=== PATIENT | female | born 1945 | race Hispanic/Latino ===

== ENCOUNTER → 2021-03-24 | Outpatient (CLI) | payer SELFPAY ==
[~2021-03-24] MED LIST: ASPI-1005 PO; GABA-531 PO; HYDR25TA PO; LOSA25TA41 PO; SIMV-43 PO; VIT1CAPS47 PO
== END | disposition home or self-care (01) ==
LOC: OIH 08:32
PROVIDERS: ATTEND Internal Medicine Cardiovascular Disease
DX: Z13.6 Encounter for screening for cardiovascular disorders (principal)
CPT/HCPCS: 75571

== ENCOUNTER → 2021-05-10 | Outpatient (CLI) | payer OTHER ==
[~2021-05-10] VITALS: Ht 160 cm; Wt 68.9 kg
[~2021-05-10] MED LIST changes: +REGADENOSON 0.4 MG/5 ML PF SYG IVP SCH
== END | disposition home or self-care (01) ==
LOC: SHCH 07:53
PROVIDERS: ATTEND Internal Medicine Cardiovascular Disease
DX: I25.10 Atherosclerotic heart disease of native coronary artery without angina pectoris (principal)
CPT/HCPCS: 78452; 93017; 96374; A9500 ×2; J2785

== ENCOUNTER 2022-03-23 08:14 | Day surgery (SDC) | payer OTHER ==
[2022-03-21 13:41] VITALS: BP 135/67
[2022-03-21 15:20] LABS: BASOPHILS % (AUTO) 1.1 % (0.0-5.0); EOSINOPHILS % (AUTO) 5.3 % (0.0-8.0); HEMATOCRIT 32.7 % (36-48); LYMPHOCYTES % (AUTO) 24.6 % (21.0-51.0); MEAN CORPUSCULAR HEMOGLOBIN 31.1 pg (27.0-33.0); MEAN CORPUSCULAR HGB CONC 33.9 g/dL (32.0-36.0); MEAN CORPUSCULAR VOLUME 91.6 fL (79-99); MONOCYTES % (AUTO) 13.7 % (3.0-13.0); NEUTROPHILS % (AUTO) 55.1 % (40.0-77.0); PLATELET COUNT (AUTO) 234 K/uL (130-400); RED BLOOD CELL COUNT(AUTO) 3.57 MIL/uL (4.00-5.50); RED CELL DISTRIBUTION WIDTH 11.5 % (11.0-15.5); WHITE BLOOD COUNT (AUTO) 4.5 K/uL (4.8-10.8)
[2022-03-21 15:30] LABS: POTASSIUM 4.4 mmol/L (3.5-5.1)
[2022-03-21 15:33] LABS: INR 0.99 (0.85-1.15); PROTHROMBIN TIME 10.8 SEC (9.6-11.6)
[2022-03-21 15:34] LABS: PARTIAL THROMBOPLASTIN TIME 26.8 SEC (26.3-35.5)
[2022-03-21 15:41] LABS: B-TYPE NATRIURETIC PEPTIDE 143 pg/mL (0-100)
[2022-03-23] VITALS (10 sets, daily range): BP systolic 131–142; BP diastolic 47–58
[~2022-03-23] VITALS: Ht 162.6 cm; Wt 69.6 kg
[~2022-03-23 08:14] MED LIST changes: +CETI10TA57 PO; +DONE10TA43 PO; +HYDR12.54 PO; -HYDR25TA PO; -LOSA25TA41 PO; +METO-408 PO; +OLME40TA18 PO; +PSYL0.4C2 PO; +RANO500T6 PO; -REGADENOSON 0.4 MG/5 ML PF SYG IVP SCH; -SIMV-43 PO; +SIMV10TA97 PO; +prevagen PO; +vitamin d3 PO
[2022-03-23] MEDS ORDERED: HEPARIN 10,000 UNIT/10ML (1,000 UNIT/ML) VIAL ONE (10:08)
[2022-03-23] MEDS ORDERED: NITROGLYCERIN 50MG VIAL ONE ×2 (10:08→11:10)
[2022-03-23] MEDS ORDERED: IOHEXOL 350 MG/ML 100ML INFUS..BTL IV ONE (10:08)
[2022-03-23] MEDS ORDERED: IOHEXOL-350 50ML VIAL IV ONE (10:08)
[2022-03-23] MEDS ORDERED: LIDOCAINE HCL 400MG/20ML VIAL ONE ×2 (10:09→11:11)
[2022-03-23] MEDS ORDERED: FENTANYL CITRATE PF 50 MCG/1 ML 2ML VIAL ONE ×2 (10:09→11:10)
[2022-03-23] MEDS ORDERED: MIDAZOLAM HCL 1 MG/ML 2ML VIAL ONE ×2 (10:09→11:10)
[2022-03-23] MEDS ORDERED: IOHEXOL-350 75 ML VIAL IV ONE (11:10)
[2022-03-23] MEDS ORDERED: 0.9%NACL 1000ML 1,000 ML IV ONE (13:24)
== END 2022-03-23 15:30 | disposition home or self-care (01) ==
LOC: DAH 08:14
PROVIDERS: ATTEND Internal Medicine Cardiovascular Disease
DX: I25.811 Atherosclerosis of native coronary artery of transplanted heart without angina pectoris (principal); I10 Essential (primary) hypertension; I44.7 Left bundle-branch block, unspecified; I73.9 Peripheral vascular disease, unspecified; E78.5 Hyperlipidemia, unspecified; Z79.01 Long term (current) use of anticoagulants; Z79.82 Long term (current) use of aspirin; Z88.0 Allergy status to penicillin; Z88.8 Allergy status to other drugs, medicaments and biological substances; Z95.5 Presence of coronary angioplasty implant and graft; Z82.49 Family history of ischemic heart disease and other diseases of the circulatory system; Z90.49 Acquired absence of other specified parts of digestive tract; Z90.710 Acquired absence of both cervix and uterus; Z98.42 Cataract extraction status, left eye; Z98.41 Cataract extraction status, right eye
CPT/HCPCS: 36415; 71045; 80048; 83880; 85025; 85610; 85730; 93005; 93458; A4215; A4216; A4221; A4222; A4223 ×3; A4606; A4663; C1760; C1894; J1644 ×2; J2250; J3010; J3490 ×3; J7030; Q9967; 99156

== ENCOUNTER 2023-03-27 05:36 | Day surgery (SDC) | payer OTHER, MEDICARE ==
[2023-03-23 13:08] VITALS: BP 116/53
[2023-03-23 13:18] LABS: BASOPHILS % (AUTO) 1.3 % (0.0-5.0); EOSINOPHILS % (AUTO) 5.6 % (0.0-8.0); HEMATOCRIT 33.1 % (36-48); LYMPHOCYTES % (AUTO) 24.7 % (21.0-51.0); MEAN CORPUSCULAR HEMOGLOBIN 31.1 pg (27.0-33.0); MEAN CORPUSCULAR HGB CONC 33.5 g/dL (32.0-36.0); MEAN CORPUSCULAR VOLUME 92.7 fL (79-99); MONOCYTES % (AUTO) 10.5 % (3.0-13.0); NEUTROPHILS % (AUTO) 57.5 % (40.0-77.0); PLATELET COUNT (AUTO) 254 K/uL (130-400); RED BLOOD CELL COUNT(AUTO) 3.57 MIL/uL (4.00-5.50); RED CELL DISTRIBUTION WIDTH 11.7 % (11.0-15.5); WHITE BLOOD COUNT (AUTO) 4.7 K/uL (4.8-10.8)
[2023-03-23 13:32] LABS: POTASSIUM 4.1 mmol/L (3.5-5.1)
[2023-03-23 13:34] LABS: PROTHROMBIN TIME 10.9 SEC (9.6-11.6)
[2023-03-23 13:35] LABS: PARTIAL THROMBOPLASTIN TIME 28.5 SEC (26.3-35.5)
[2023-03-23 13:45] LABS: APPEARANCE,URINE CLEAR (CLEAR); BILIRUBIN,URINE NEGATIVE (NEGATIVE); COLOR,URINE LIGHT-YELLOW (YELLOW); GLUCOSE, URINE (UA) NEGATIVE (NEGATIVE); KETONES,URINE NEGATIVE (NEGATIVE); LEUKOCYTE ESTERASE ,URINE NEGATIVE Leu/uL (NEGATIVE); NITRATE,URINE NEGATIVE (NEGATIVE); OCCULT BLOOD,URINE NEGATIVE (NEGATIVE); PROTEIN,URINE NEGATIVE (NEGATIVE); UROBILINOGEN,URINE 0.2 mg/dL (0.2-1.0)
[2023-03-23 13:52] LABS: B-TYPE NATRIURETIC PEPTIDE 295 pg/mL (0-100)
[2023-03-27] VITALS (9 sets, daily range): BP systolic 92–115; BP diastolic 30–39
[~2023-03-27] VITALS: Ht 161.3 cm; Wt 62.5 kg
[~2023-03-27 05:36] MED LIST changes: +AEC81 PO; -ASPI-1005 PO; +BUPR1PAT10 TD; +CARV3.12 PO; +CHOL200013 PO; +FLUT16H NASAL; +FURO20TA4 PO; -GABA-531 PO; -HYDR12.54 PO; -METO-408 PO; -OLME40TA18 PO; +OMEP20CA12 PO; -RANO500T6 PO; +SACU1TAB PO; +SPIR25TA6 PO; +VITA1TAB22 PO; -prevagen PO; -vitamin d3 PO
[2023-03-27] MEDS ORDERED: 0.9%NACL 1000ML 1,000 ML IV ONE (06:11)
[2023-03-27] MEDS ORDERED: LIDOCAINE HCL 400MG/20ML VIAL ONE (07:04)
[2023-03-27] MEDS ORDERED: NITROGLYCERIN 50MG VIAL ONE (07:04)
[2023-03-27] MEDS ORDERED: IOHEXOL-350 75 ML VIAL IV ONE (07:04)
[2023-03-27] MEDS ORDERED: MIDAZOLAM HCL 1 MG/ML 2ML VIAL ONE (07:04)
[2023-03-27] MEDS ORDERED: IOHEXOL-350 50ML VIAL IV ONE (07:39)
== END 2023-03-27 12:00 | disposition home or self-care (01) ==
LOC: DAH 05:36
PROVIDERS: ATTEND Internal Medicine Cardiovascular Disease
DX: I25.10 Atherosclerotic heart disease of native coronary artery without angina pectoris (principal); I25.811 Atherosclerosis of native coronary artery of transplanted heart without angina pectoris; I11.0 Hypertensive heart disease with heart failure; I50.22 Chronic systolic (congestive) heart failure; I44.7 Left bundle-branch block, unspecified; I25.5 Ischemic cardiomyopathy; I87.2 Venous insufficiency (chronic) (peripheral); I73.9 Peripheral vascular disease, unspecified; E78.5 Hyperlipidemia, unspecified; Z88.0 Allergy status to penicillin; Z88.8 Allergy status to other drugs, medicaments and biological substances; Z86.718 Personal history of other venous thrombosis and embolism; Z79.01 Long term (current) use of anticoagulants; Z90.710 Acquired absence of both cervix and uterus; Z90.49 Acquired absence of other specified parts of digestive tract; Z98.41 Cataract extraction status, right eye; Z98.42 Cataract extraction status, left eye; Z82.49 Family history of ischemic heart disease and other diseases of the circulatory system; Z79.899 Other long term (current) drug therapy
CPT/HCPCS: 80048; 83880; 85025; 85610; 85730; 81003; 36415; 71045; 93005; 93458; C1894; C1760; J3490; J7030; J2250; J1644; Q9967 ×2; A4215; A4335; A4222; A4221; A4663; A4216; A4606; Q9965; A4223 ×3; 99156; 99157

== ENCOUNTER 2023-06-05 08:25 | Day surgery (SDC) | payer OTHER, MEDICARE ==
[2023-06-01 08:32] LABS: BASOPHILS # (AUTO) 0.05 K/uL (0.00-0.20); BASOPHILS % (AUTO) 1.2 % (0.0-5.0); EOSINOPHILS # (AUTO) 0.27 K/uL (0.00-0.70); EOSINOPHILS % (AUTO) 6.3 % (0.0-8.0); HEMATOCRIT 31.2 % (36-48); IMMATURE GRANULOCYTE ABSOLUTE 0.01 K/uL (0-1); LYMPHOCYTES # (AUTO) 0.9 K/uL (1.0-4.8); LYMPHOCYTES % (AUTO) 20.8 % (21.0-51.0); MEAN CORPUSCULAR HEMOGLOBIN 30.8 pg (27.0-33.0); MEAN CORPUSCULAR VOLUME 93.4 fL (79-99); MONOCYTES # (AUTO) 0.4 K/uL (0.1-1.0); NEUTROPHILS # (AUTO) 2.6 K/uL (1.8-7.7); NEUTROPHILS % (AUTO) 61.5 % (40.0-77.0); PLATELET COUNT (AUTO) 219 K/uL (130-400); RED BLOOD CELL COUNT(AUTO) 3.34 MIL/uL (4.00-5.50); WHITE BLOOD COUNT (AUTO) 4.3 K/uL (4.8-10.8)
[2023-06-01 08:48] LABS: CREATININE 0.9 mg/dL (0.5-1.5); POTASSIUM 4.1 mmol/L (3.5-5.1)
[2023-06-01 08:49] LABS: INR 0.97 (0.85-1.15); PROTHROMBIN TIME 11.3 SEC (9.6-11.6)
[2023-06-01 08:51] LABS: PARTIAL THROMBOPLASTIN TIME 26.3 SEC (26.3-35.5)
[2023-06-01 10:29] VITALS: BP 121/52; PULSE 68; RESP 20
[~2023-06-05] VITALS: Ht 167.6 cm; Wt 63.3 kg
[2023-06-05] VITALS (9 sets, daily range): BP systolic 107–131; BP diastolic 42–49; PULSE 57–64; RESP 14–18
[~2023-06-05 08:25] MED LIST changes: +ACET-66 PO; -BUPR1PAT10 TD; +FERR-82 PO; -FLUT16H NASAL; +IPRA6S NASAL; -OMEP20CA12 PO
[2023-06-05] MEDS ORDERED: ISOVUE-300 100 ML VIAL IV ONE (08:26)
[2023-06-05] MEDS ORDERED: BUPIVACAINE/PF 0.25% 30ML VIAL IJ ONE (12:35)
[2023-06-05] MEDS ORDERED: LIDOCAINE HCL 1% MDV 50ML VIAL ONE (12:35)
[2023-06-05] MEDS ORDERED: CEFAZOLIN SODIUM 1 GM VIAL ONE (12:35)
[2023-06-05] MEDS ORDERED: VANCOMYCIN 1G/250ML KIT 500 ML IV ONE (12:47)
[2023-06-05] MEDS ORDERED: MIDAZOLAM HCL 1 MG/ML 2ML VIAL ONE ×3 (12:56→13:24)
[2023-06-05] MEDS ORDERED: MEPERIDINE-PF 25 MG/ML SYG ONE ×3 (12:56→13:24)
[2023-06-05] MEDS ORDERED: TRAM50TA4 PO (14:46)
[2023-06-05] MEDS ORDERED: ACETAMINOPHEN 500 MG TABLET PO PRN (15:00)
[2023-06-05] MEDS ORDERED: ACETAMINOPHEN WITH CODEINE 1 TAB TAB PO PRN (15:00)
== END 2023-06-05 18:05 | disposition home or self-care (01) ==
LOC: DAH 08:25
PROVIDERS: ATTEND Internal Medicine Cardiovascular Disease
DX: I42.8 Other cardiomyopathies (principal); I44.7 Left bundle-branch block, unspecified; I11.0 Hypertensive heart disease with heart failure; I50.42 Chronic combined systolic (congestive) and diastolic (congestive) heart failure; E78.5 Hyperlipidemia, unspecified; I25.10 Atherosclerotic heart disease of native coronary artery without angina pectoris; Z79.01 Long term (current) use of anticoagulants; Z79.899 Other long term (current) drug therapy; Z79.82 Long term (current) use of aspirin; Z90.710 Acquired absence of both cervix and uterus; Z98.41 Cataract extraction status, right eye; Z98.42 Cataract extraction status, left eye; Z98.890 Other specified postprocedural states; Z82.49 Family history of ischemic heart disease and other diseases of the circulatory system; Z88.8 Allergy status to other drugs, medicaments and biological substances; Z88.0 Allergy status to penicillin
CPT/HCPCS: 80048; 85025; 85610; 85730; 36415; 93005; 33249; 33225; 71045; C1769; C1882; C1900; C1896; C1895; Q9967; J3490 ×2; J2250 ×3; J3370; J2175 ×3; A4215; A4222; A4221; A4663; A4216; A4606; A4223 ×3; 99156; 99157; J0690

== ENCOUNTER → 2023-08-10 | Outpatient (CLI) | payer OTHER, MEDICARE ==
[~2023-08-10] MED LIST changes: +TRAM50TA4 PO
[2023-08-10 12:33] LABS: CREATININE 1.5 mg/dL (0.5-1.5); POTASSIUM 4.5 mmol/L (3.5-5.1)
== END | disposition home or self-care (01) ==
LOC: LAB 10:11
PROVIDERS: ATTEND Internal Medicine Cardiovascular Disease
DX: I10 Essential (primary) hypertension (principal)
CPT/HCPCS: 36415; 80048; 83880

== ENCOUNTER → 2023-08-30 | Outpatient (CLI) | payer OTHER, MEDICARE ==
[~2023-08-30] MED LIST changes: -ACET-66 PO; +AREDS EYE VIT PO; -FURO20TA4 PO; +FURO40TA5 PO; +GABA100C PO; -SPIR25TA6 PO; -TRAM50TA4 PO; +TYLENOL ARTHRITIS PO
[2023-08-30 16:43] LABS: CREATININE 1.3 mg/dL (0.5-1.5)
== END | disposition home or self-care (01) ==
LOC: LAB 13:26
PROVIDERS: ATTEND Internal Medicine Cardiovascular Disease
DX: I25.10 Atherosclerotic heart disease of native coronary artery without angina pectoris (principal)
CPT/HCPCS: 36415; 80048; 83880